=== PATIENT | female | born 1985 ===

== ENCOUNTER 2023-09-05 08:45 | Inpatient (IN) | payer OTHER ==
[~2023-09-05] VITALS: Ht 149.9 cm; Wt 90.7 kg
[2023-09-05] MEDS ORDERED: LEVOTHYROXINE25 MCG PO (11:59)
[2023-09-07] MEDS ORDERED: DEXAMETHASONE SODIUM PHOSPHATE 4 MG/ML VIAL ONE (08:24)
[2023-09-07] MEDS ORDERED: DEXAMETHASONE SODIUM PHOSPHATE 4 MG/ML VIAL IV ONE (08:45)
[2023-09-07] MEDS ORDERED: ONDANSETRON HCL 2 MG/ML VIAL IV PRN (10:30)
[2023-09-07] MEDS ORDERED: RINGERS SOLUTION,LACTATED 1,000 ML IV SCH (10:30)
[2023-09-07] MEDS ORDERED: ENALAPRILAT DIHYDRATE 1.25 MG/ML VIAL IV PRN (10:30)
[2023-09-07] MEDS ORDERED: ACETAMINOPHEN 500 MG GEL..CAP PO SCH (13:00)
[2023-09-07] MEDS ORDERED: TRAMADOL HCL 50 MG TABLET PO SCH (14:00)
[2023-09-07] MEDS ORDERED: Calcium Carbonate 1 TAB TABLET PO SCH (21:00)
[2023-09-08] MEDS ORDERED: LEVOTHYROXINE SODIUM 137 MCG TABLET PO SCH (09:00)
[2023-09-08] MEDS ORDERED: CYCLOBENZAPRINE HCL 5 MG TABLET PO SCH (09:00)
== END 2023-09-08 12:18 | disposition home or self-care (01) | DRG 627 ==
LOC: O/R 09-07 05:00 → SURH 09-07 07:00 → SURG 09-07 11:53
PROVIDERS: ADMIT Otolaryngology; ATTEND Otolaryngology
PROC: 0GTK0ZZ Resection of Thyroid Gland, Open Approach (ICD-10-PCS; principal; 2023-09-07 07:00)
DX: C73 Malignant neoplasm of thyroid gland (principal); Z20.822 Contact with and (suspected) exposure to COVID-19